=== PATIENT | female | born 1960 | race African-American/Black ===

== ENCOUNTER 2017-06-13 20:16 | Inpatient (IN) | payer MEDICARE, MEDICAID ==
[~2017-06-13] VITALS: Ht 157.5 cm; Wt 73.3 kg
[2017-06-13 20:00] VITALS: BP 161/65
[2017-06-13 20:15] VITALS: BP 161/65
[~2017-06-13 20:16] MED LIST: ASPI-1159 PO; CARV25TA47 PO; CARV6.2548 PO; DIGO125T82 PO; FURO40TA5 PO; LOSA25TA12 PO; LOSA50TA20 PO; METF500T4 PO; RIVA20TA PO; SIMV10TA6 PO; WARF6TAB21 PO
[2017-06-13] MEDS ORDERED: ONDANSETRON HCL 4MG TABLET PO PRN (20:30)
[2017-06-13] MEDS ORDERED: LACTULOSE 20G/30ML UDC PO NR (20:30)
[2017-06-13] MEDS ORDERED: DEXTROSE 50% WATER 50ML SYRINGE IV PRN (20:30)
[2017-06-13] MEDS: INSULIN LISPRO 100 UNITS/ML SUBCUT SCH (21:00)
[2017-06-13] MEDS: CARVEDILOL 3.125 MG TABLET PO SCH (21:50)
[2017-06-13] MEDS: ACETAMINOPHEN 325MG TABLET PO PRN (21:52)
[2017-06-13] MEDS: BLOOD SUGAR DIAGNOSTIC STRIP TEST SCH (21:53)
[2017-06-14] MEDS: INSULIN LISPRO 100 UNITS/ML SUBCUT SCH ×4 (06:28→20:38)
[2017-06-14] MEDS: BLOOD SUGAR DIAGNOSTIC STRIP TEST SCH ×4 (06:28→20:38)
[2017-06-14] MEDS: FUROSEMIDE 20MG TABLET PO SCH ×2 (06:42→16:52)
[2017-06-14 06:47] LABS: BASOPHILS % 0.7 % (0.0-2.0); EOSINOPHILS % 2.2 % (0.0-5.0); HEMATOCRIT. 40.6 % (36.0-48.0); HEMOGLOBIN. 13.3 g/dL (12.0-16.0); LYMPHOCYTES % 23.6 % (20.0-50.0); MEAN CORPUSCULAR HEMOGLOBIN 24.8 pg (28.0-32.0); MEAN CORPUSCULAR VOLUME 75.5 fL (81.0-99.0); MEAN PLATELET VOLUME 8.8 fl (7.4-10.4); MONOCYTES % 13.9 % (2.0-8.0); NEUTROPHILS % 59.6 % (40.0-76.0); PLATELET 250 x1000/uL (130-400); RED BLOOD CELL COUNT 5.37 mill/uL (4.2-5.4); RED CELL DISTRIBUTION WIDTH 16.9 % (11.6-14.6)
[2017-06-14] MEDS ORDERED: OMEPRAZOLE 20MG CAPSULE EXTENDED RELEASE PO SCH (07:00)
[2017-06-14 08:00] VITALS: BP 109/70
[2017-06-14] MEDS: CARVEDILOL 3.125 MG TABLET PO SCH ×2 (08:16→20:34)
[2017-06-14] MEDS: LOSARTAN POTASSIUM 25 MG TABLET PO SCH (08:16)
[2017-06-14] MEDS: FAMOTIDINE 20MG TABLET PO SCH (08:17)
[2017-06-14] MEDS: DOCUSATE SODIUM 100MG CAPSULE PO PRN (08:17)
[2017-06-14] MEDS: POTASSIUM CHLORIDE 20MEQ TABLET SR PO SCH (08:17)
[2017-06-14] MEDS ORDERED: LEVOFLOXACIN 500MG TABLET PO SCH (09:00)
[2017-06-14] MEDS: RIVAROXABAN 20 MG TABLET PO SCH (16:49)
[2017-06-14] MEDS ORDERED: LEVOFLOXACIN 250MG TABLET PO SCH (17:33)
[2017-06-14 20:00] VITALS: BP 134/71
[2017-06-14] MEDS: ACETAMINOPHEN 325MG TABLET PO PRN (20:33)
[2017-06-15] MEDS: FUROSEMIDE 20MG TABLET PO SCH ×2 (06:27→17:14)
[2017-06-15] MEDS: BLOOD SUGAR DIAGNOSTIC STRIP TEST SCH ×4 (06:30→20:15)
[2017-06-15] MEDS: INSULIN LISPRO 100 UNITS/ML SUBCUT SCH ×4 (06:54→20:14)
[2017-06-15 07:08] LABS: HEMOGLOBIN. 13.2 g/dL (12.0-16.0); MEAN CORPUSCULAR HEMOGLOBIN 24.8 pg (28.0-32.0); MEAN CORPUSCULAR VOLUME 75.4 fL (81.0-99.0); MEAN PLATELET VOLUME 8.7 fl (7.4-10.4); PLATELET 239 x1000/uL (130-400); RED CELL DISTRIBUTION WIDTH 16.7 % (11.6-14.6)
[2017-06-15 08:00] VITALS: BP 116/60
[2017-06-15] MEDS: FAMOTIDINE 20MG TABLET PO SCH (08:19)
[2017-06-15] MEDS: LOSARTAN POTASSIUM 25 MG TABLET PO SCH (08:19)
[2017-06-15] MEDS: POTASSIUM CHLORIDE 20MEQ TABLET SR PO SCH (08:19)
[2017-06-15] MEDS: CARVEDILOL 3.125 MG TABLET PO SCH ×2 (08:19→20:14)
[2017-06-15] MEDS: LEVOFLOXACIN 250MG TABLET PO SCH (08:19)
[2017-06-15 09:18] LABS: PLATELET ESTIMATE NORMAL
[2017-06-15] MEDS: ACETAMINOPHEN 325MG TABLET PO PRN (12:05)
[2017-06-15] MEDS: RIVAROXABAN 20 MG TABLET PO SCH (17:14)
[2017-06-15 20:00] VITALS: BP 115/62
[2017-06-16] MEDS: BLOOD SUGAR DIAGNOSTIC STRIP TEST SCH ×4 (05:37→20:08)
[2017-06-16] MEDS: INSULIN LISPRO 100 UNITS/ML SUBCUT SCH ×4 (05:37→20:08)
[2017-06-16] MEDS: FUROSEMIDE 20MG TABLET PO SCH ×2 (06:15→16:50)
[2017-06-16] MEDS: CARVEDILOL 3.125 MG TABLET PO SCH ×2 (09:00→20:07)
[2017-06-16] MEDS: LOSARTAN POTASSIUM 25 MG TABLET PO SCH (09:00)
[2017-06-16] MEDS: LEVOFLOXACIN 250MG TABLET PO SCH (09:59)
[2017-06-16] MEDS: POTASSIUM CHLORIDE 20MEQ TABLET SR PO SCH (09:59)
[2017-06-16] MEDS: FAMOTIDINE 20MG TABLET PO SCH (09:59)
[2017-06-16] MEDS: RIVAROXABAN 20 MG TABLET PO SCH (16:50)
[2017-06-16 20:00] VITALS: BP 133/66
[2017-06-17] MEDS: BLOOD SUGAR DIAGNOSTIC STRIP TEST SCH ×4 (05:58→20:59)
[2017-06-17] MEDS: INSULIN LISPRO 100 UNITS/ML SUBCUT SCH ×4 (05:58→20:59)
[2017-06-17] MEDS: FUROSEMIDE 20MG TABLET PO SCH ×2 (06:19→16:53)
[2017-06-17 08:34] VITALS: BP 118/87
[2017-06-17] MEDS: LOSARTAN POTASSIUM 25 MG TABLET PO SCH (09:00)
[2017-06-17] MEDS: POTASSIUM CHLORIDE 20MEQ TABLET SR PO SCH (09:14)
[2017-06-17] MEDS: CARVEDILOL 3.125 MG TABLET PO SCH ×2 (09:14→20:59)
[2017-06-17] MEDS: FAMOTIDINE 20MG TABLET PO SCH (09:14)
[2017-06-17 11:25] LABS: BASOPHILS % 0.7 % (0.0-2.0); EOSINOPHILS % 2.5 % (0.0-5.0); HEMATOCRIT. 41.1 % (36.0-48.0); HEMOGLOBIN. 13.3 g/dL (12.0-16.0); LYMPHOCYTES % 28.5 % (20.0-50.0); MEAN CORPUSCULAR HEMOGLOBIN 24.5 pg (28.0-32.0); MEAN CORPUSCULAR VOLUME 75.5 fL (81.0-99.0); MEAN PLATELET VOLUME 8.1 fl (7.4-10.4); MONOCYTES % 10.2 % (2.0-8.0); NEUTROPHILS % 58.1 % (40.0-76.0); PLATELET 239 x1000/uL (130-400); RED BLOOD CELL COUNT 5.44 mill/uL (4.2-5.4)
[2017-06-17 11:42] LABS: CHLORIDE 107 mEq/L (98-107)
[2017-06-17] MEDS: RIVAROXABAN 20 MG TABLET PO SCH (16:53)
[2017-06-17] MEDS: ACETAMINOPHEN 325MG TABLET PO PRN (16:58)
[2017-06-17 20:00] VITALS: BP 131/73
[2017-06-18] MEDS: BLOOD SUGAR DIAGNOSTIC STRIP TEST SCH ×4 (05:44→21:32)
[2017-06-18] MEDS: INSULIN LISPRO 100 UNITS/ML SUBCUT SCH ×4 (05:45→21:00)
[2017-06-18] MEDS: FUROSEMIDE 20MG TABLET PO SCH ×2 (06:16→17:45)
[2017-06-18 08:00] VITALS: BP 156/96
[2017-06-18] MEDS: CARVEDILOL 3.125 MG TABLET PO SCH ×2 (08:33→21:33)
[2017-06-18] MEDS: POTASSIUM CHLORIDE 20MEQ TABLET SR PO SCH (08:34)
[2017-06-18] MEDS: LOSARTAN POTASSIUM 25 MG TABLET PO SCH (08:34)
[2017-06-18] MEDS: FAMOTIDINE 20MG TABLET PO SCH (08:34)
[2017-06-18] MEDS ORDERED: BISACODYL 5MG TABLET PO PRN (12:30)
[2017-06-18] MEDS: RIVAROXABAN 20 MG TABLET PO SCH (17:45)
[2017-06-18 19:52] VITALS: BP 120/69
[2017-06-19] MEDS: BLOOD SUGAR DIAGNOSTIC STRIP TEST SCH ×4 (06:14→21:49)
[2017-06-19] MEDS: INSULIN LISPRO 100 UNITS/ML SUBCUT SCH ×4 (06:15→21:00)
[2017-06-19] MEDS: FUROSEMIDE 20MG TABLET PO SCH ×2 (06:15→16:25)
[2017-06-19 07:54] LABS: CHLORIDE 107 mEq/L (98-107); HDL CHOLESTEROL 42 mg/dL (40-59); LDL CHOLESTEROL 120 mg/dL (5-100)
[2017-06-19 08:17] VITALS: BP 142/88
[2017-06-19] MEDS: LOSARTAN POTASSIUM 25 MG TABLET PO SCH (09:25)
[2017-06-19] MEDS: FAMOTIDINE 20MG TABLET PO SCH (09:25)
[2017-06-19] MEDS: POTASSIUM CHLORIDE 20MEQ TABLET SR PO SCH (09:25)
[2017-06-19] MEDS: CARVEDILOL 3.125 MG TABLET PO SCH ×2 (09:26→21:00)
[2017-06-19] MEDS: RIVAROXABAN 20 MG TABLET PO SCH (16:25)
[2017-06-19 20:00] VITALS: BP 109/76
[2017-06-20] MEDS: BLOOD SUGAR DIAGNOSTIC STRIP TEST SCH ×4 (05:52→21:29)
[2017-06-20] MEDS: FUROSEMIDE 20MG TABLET PO SCH ×2 (05:53→18:08)
[2017-06-20] MEDS: INSULIN LISPRO 100 UNITS/ML SUBCUT SCH ×4 (06:46→21:00)
[2017-06-20 08:00] VITALS: BP 123/67
[2017-06-20] MEDS: FAMOTIDINE 20MG TABLET PO SCH (08:45)
[2017-06-20] MEDS: POTASSIUM CHLORIDE 20MEQ TABLET SR PO SCH (08:45)
[2017-06-20] MEDS: LOSARTAN POTASSIUM 25 MG TABLET PO SCH (08:45)
[2017-06-20] MEDS: CARVEDILOL 3.125 MG TABLET PO SCH ×2 (08:46→21:32)
[2017-06-20] MEDS: RIVAROXABAN 20 MG TABLET PO SCH (18:08)
[2017-06-20 20:00] VITALS: BP 126/69
[2017-06-21] MEDS: BLOOD SUGAR DIAGNOSTIC STRIP TEST SCH ×4 (06:01→21:15)
[2017-06-21] MEDS: FUROSEMIDE 20MG TABLET PO SCH ×2 (06:01→16:37)
[2017-06-21 06:19] LABS: HEMATOCRIT. 37.6 % (36.0-48.0); HEMOGLOBIN. 12.3 g/dL (12.0-16.0); MEAN CORPUSCULAR HEMOGLOBIN 24.8 pg (28.0-32.0); MEAN CORPUSCULAR VOLUME 75.6 fL (81.0-99.0); PLATELET 172 x1000/uL (130-400); RED BLOOD CELL COUNT 4.97 mill/uL (4.2-5.4); RED CELL DISTRIBUTION WIDTH 16.5 % (11.6-14.6)
[2017-06-21 08:17] VITALS: BP 111/62
[2017-06-21] MEDS: CARVEDILOL 3.125 MG TABLET PO SCH ×2 (08:28→21:14)
[2017-06-21] MEDS: LOSARTAN POTASSIUM 25 MG TABLET PO SCH (08:28)
[2017-06-21 08:42] LABS: CHLORIDE 109 mEq/L (98-107)
[2017-06-21] MEDS: INSULIN LISPRO 100 UNITS/ML SUBCUT SCH ×4 (09:00→21:00)
[2017-06-21] MEDS: POTASSIUM CHLORIDE 20MEQ TABLET SR PO SCH (09:04)
[2017-06-21] MEDS: FAMOTIDINE 20MG TABLET PO SCH (09:04)
[2017-06-21 12:28] LABS: PLATELET ESTIMATE NORMAL
[2017-06-21] MEDS: RIVAROXABAN 20 MG TABLET PO SCH (16:37)
[2017-06-21 20:00] VITALS: BP 110/67
[2017-06-22] MEDS: INSULIN LISPRO 100 UNITS/ML SUBCUT SCH ×4 (06:00→20:34)
[2017-06-22] MEDS: BLOOD SUGAR DIAGNOSTIC STRIP TEST SCH ×4 (06:01→20:35)
[2017-06-22] MEDS: FUROSEMIDE 20MG TABLET PO SCH ×2 (06:01→16:57)
[2017-06-22 08:00] VITALS: BP 127/67
[2017-06-22] MEDS: POTASSIUM CHLORIDE 20MEQ TABLET SR PO SCH (08:33)
[2017-06-22] MEDS: FAMOTIDINE 20MG TABLET PO SCH (08:33)
[2017-06-22] MEDS: LOSARTAN POTASSIUM 25 MG TABLET PO SCH (08:33)
[2017-06-22] MEDS: CARVEDILOL 3.125 MG TABLET PO SCH ×3 (08:34→20:36)
[2017-06-22] MEDS: RIVAROXABAN 20 MG TABLET PO SCH (16:57)
[2017-06-22 20:00] VITALS: BP 127/78
[2017-06-22 20:46] VITALS: BP 127/78
[2017-06-23] MEDS: BLOOD SUGAR DIAGNOSTIC STRIP TEST SCH ×4 (05:37→20:39)
[2017-06-23] MEDS: INSULIN LISPRO 100 UNITS/ML SUBCUT SCH ×4 (05:38→20:39)
[2017-06-23] MEDS: FUROSEMIDE 20MG TABLET PO SCH ×2 (06:29→17:07)
[2017-06-23 08:17] VITALS: BP 105/60
[2017-06-23] MEDS: POTASSIUM CHLORIDE 20MEQ TABLET SR PO SCH (08:40)
[2017-06-23] MEDS: FAMOTIDINE 20MG TABLET PO SCH (08:40)
[2017-06-23] MEDS: LOSARTAN POTASSIUM 25 MG TABLET PO SCH (08:41)
[2017-06-23] MEDS: CARVEDILOL 3.125 MG TABLET PO SCH ×2 (08:41→20:36)
[2017-06-23] MEDS: RIVAROXABAN 20 MG TABLET PO SCH (17:07)
[2017-06-23 20:00] VITALS: BP 146/74
[2017-06-24] MEDS: FUROSEMIDE 20MG TABLET PO SCH ×2 (06:18→17:05)
[2017-06-24] MEDS: BLOOD SUGAR DIAGNOSTIC STRIP TEST SCH ×4 (06:18→20:45)
[2017-06-24 06:37] LABS: BASOPHILS % 0.9 % (0.0-2.0); EOSINOPHILS % 2.6 % (0.0-5.0); HEMATOCRIT. 39.7 % (36.0-48.0); HEMOGLOBIN. 12.8 g/dL (12.0-16.0); LYMPHOCYTES % 39.3 % (20.0-50.0); MEAN CORPUSCULAR HEMOGLOBIN 24.5 pg (28.0-32.0); MEAN PLATELET VOLUME 8.7 fl (7.4-10.4); MONOCYTES % 10.1 % (2.0-8.0); NEUTROPHILS % 47.1 % (40.0-76.0); PLATELET 180 x1000/uL (130-400); RED BLOOD CELL COUNT 5.23 mill/uL (4.2-5.4); RED CELL DISTRIBUTION WIDTH 16.7 % (11.6-14.6)
[2017-06-24 07:20] LABS: CHLORIDE 106 mEq/L (98-107)
[2017-06-24] MEDS: INSULIN LISPRO 100 UNITS/ML SUBCUT SCH ×4 (07:22→20:45)
[2017-06-24 08:00] VITALS: BP 135/84
[2017-06-24] MEDS: CARVEDILOL 3.125 MG TABLET PO SCH ×2 (08:58→20:42)
[2017-06-24] MEDS: FAMOTIDINE 20MG TABLET PO SCH (08:59)
[2017-06-24] MEDS: POTASSIUM CHLORIDE 20MEQ TABLET SR PO SCH (08:59)
[2017-06-24] MEDS: LOSARTAN POTASSIUM 25 MG TABLET PO SCH (08:59)
[2017-06-24] MEDS: RIVAROXABAN 20 MG TABLET PO SCH (17:05)
[2017-06-24 20:00] VITALS: BP 112/64
[2017-06-25 05:58] LABS: EOSINOPHILS % 2.7 % (0.0-5.0); HEMATOCRIT. 36.7 % (36.0-48.0); HEMOGLOBIN. 12.1 g/dL (12.0-16.0); LYMPHOCYTES % 41.5 % (20.0-50.0); MEAN CORPUSCULAR HEMOGLOBIN 24.5 pg (28.0-32.0); MEAN CORPUSCULAR VOLUME 74.2 fL (81.0-99.0); MEAN PLATELET VOLUME 8.8 fl (7.4-10.4); MONOCYTES % 11.4 % (2.0-8.0); NEUTROPHILS % 43.4 % (40.0-76.0); PLATELET 192 x1000/uL (130-400); RED BLOOD CELL COUNT 4.94 mill/uL (4.2-5.4); RED CELL DISTRIBUTION WIDTH 16.8 % (11.6-14.6)
[2017-06-25 06:17] LABS: CHLORIDE 106 mEq/L (98-107)
[2017-06-25] MEDS: BLOOD SUGAR DIAGNOSTIC STRIP TEST SCH ×4 (06:17→20:34)
[2017-06-25] MEDS: FUROSEMIDE 20MG TABLET PO SCH ×2 (06:17→17:23)
[2017-06-25] MEDS: INSULIN LISPRO 100 UNITS/ML SUBCUT SCH ×4 (07:32→20:34)
[2017-06-25 08:08] VITALS: BP 107/71
[2017-06-25] MEDS: CARVEDILOL 3.125 MG TABLET PO SCH ×2 (08:50→20:31)
[2017-06-25] MEDS: LOSARTAN POTASSIUM 25 MG TABLET PO SCH (08:50)
[2017-06-25] MEDS: POTASSIUM CHLORIDE 20MEQ TABLET SR PO SCH (09:18)
[2017-06-25] MEDS: FAMOTIDINE 20MG TABLET PO SCH (09:18)
[2017-06-25] MEDS: RIVAROXABAN 20 MG TABLET PO SCH (17:23)
[2017-06-25 20:00] VITALS: BP 128/78
[2017-06-26] MEDS: BLOOD SUGAR DIAGNOSTIC STRIP TEST SCH ×4 (06:14→21:10)
[2017-06-26] MEDS: FUROSEMIDE 20MG TABLET PO SCH ×2 (06:14→17:21)
[2017-06-26 06:16] VITALS: BP 118/74
[2017-06-26] MEDS: INSULIN LISPRO 100 UNITS/ML SUBCUT SCH ×4 (06:48→21:00)
[2017-06-26 08:00] VITALS: BP 132/87
[2017-06-26] MEDS: FAMOTIDINE 20MG TABLET PO SCH (08:34)
[2017-06-26] MEDS: POTASSIUM CHLORIDE 20MEQ TABLET SR PO SCH (08:34)
[2017-06-26] MEDS: LOSARTAN POTASSIUM 25 MG TABLET PO SCH (08:34)
[2017-06-26] MEDS: CARVEDILOL 3.125 MG TABLET PO SCH ×2 (08:34→21:07)
[2017-06-26] MEDS: RIVAROXABAN 20 MG TABLET PO SCH (17:21)
[2017-06-26 20:00] VITALS: BP 123/75
[2017-06-27] MEDS: INSULIN LISPRO 100 UNITS/ML SUBCUT SCH ×4 (05:47→20:43)
[2017-06-27] MEDS: BLOOD SUGAR DIAGNOSTIC STRIP TEST SCH ×4 (05:47→20:42)
[2017-06-27] MEDS: FUROSEMIDE 20MG TABLET PO SCH ×2 (06:26→17:00)
[2017-06-27] MEDS: FAMOTIDINE 20MG TABLET PO SCH (08:01)
[2017-06-27] MEDS: LOSARTAN POTASSIUM 25 MG TABLET PO SCH (08:01)
[2017-06-27] MEDS: POTASSIUM CHLORIDE 20MEQ TABLET SR PO SCH (08:01)
[2017-06-27] MEDS: CARVEDILOL 3.125 MG TABLET PO SCH ×2 (08:01→20:46)
[2017-06-27 08:08] VITALS: BP 135/76
[2017-06-27] MEDS: RIVAROXABAN 20 MG TABLET PO SCH (17:00)
[2017-06-27 20:00] VITALS: BP 132/78
[2017-06-28] MEDS: BLOOD SUGAR DIAGNOSTIC STRIP TEST SCH ×4 (05:51→20:46)
[2017-06-28] MEDS: INSULIN LISPRO 100 UNITS/ML SUBCUT SCH ×4 (05:51→20:46)
[2017-06-28] MEDS: FUROSEMIDE 20MG TABLET PO SCH ×2 (06:41→16:15)
[2017-06-28 07:48] LABS: EOSINOPHILS % 2.8 % (0.0-5.0); HEMATOCRIT. 37.1 % (36.0-48.0); LYMPHOCYTES % 36.5 % (20.0-50.0); MEAN CORPUSCULAR HEMOGLOBIN 24.1 pg (28.0-32.0); MEAN CORPUSCULAR VOLUME 74.7 fL (81.0-99.0); MEAN PLATELET VOLUME 9.4 fl (7.4-10.4); NEUTROPHILS % 49.7 % (40.0-76.0); PLATELET 210 x1000/uL (130-400); RED BLOOD CELL COUNT 4.96 mill/uL (4.2-5.4); RED CELL DISTRIBUTION WIDTH 16.4 % (11.6-14.6)
[2017-06-28 08:01] VITALS: BP 143/75
[2017-06-28 08:47] LABS: CHLORIDE 105 mEq/L (98-107)
[2017-06-28] MEDS: POTASSIUM CHLORIDE 20MEQ TABLET SR PO SCH (09:57)
[2017-06-28] MEDS: LOSARTAN POTASSIUM 25 MG TABLET PO SCH (09:57)
[2017-06-28] MEDS: CARVEDILOL 3.125 MG TABLET PO SCH ×2 (09:57→20:44)
[2017-06-28] MEDS: FAMOTIDINE 20MG TABLET PO SCH (09:57)
[2017-06-28] MEDS: RIVAROXABAN 20 MG TABLET PO SCH (16:15)
[2017-06-28 20:00] VITALS: BP 139/58
[2017-06-29] MEDS: BLOOD SUGAR DIAGNOSTIC STRIP TEST SCH ×4 (06:27→20:38)
[2017-06-29] MEDS: INSULIN LISPRO 100 UNITS/ML SUBCUT SCH ×4 (06:27→20:38)
[2017-06-29] MEDS: FUROSEMIDE 20MG TABLET PO SCH ×2 (06:28→17:30)
[2017-06-29 08:00] VITALS: BP 138/88
[2017-06-29] MEDS: DOCUSATE SODIUM 100MG CAPSULE PO PRN (09:58)
[2017-06-29] MEDS: LOSARTAN POTASSIUM 25 MG TABLET PO SCH (09:58)
[2017-06-29] MEDS: POTASSIUM CHLORIDE 20MEQ TABLET SR PO SCH (09:59)
[2017-06-29] MEDS: FAMOTIDINE 20MG TABLET PO SCH (09:59)
[2017-06-29] MEDS: CARVEDILOL 3.125 MG TABLET PO SCH ×2 (10:00→20:36)
[2017-06-29] MEDS: RIVAROXABAN 20 MG TABLET PO SCH (17:30)
[2017-06-29 20:00] VITALS: BP 155/94
[2017-06-30] MEDS: FUROSEMIDE 20MG TABLET PO SCH ×2 (06:20→17:43)
[2017-06-30] MEDS: BLOOD SUGAR DIAGNOSTIC STRIP TEST SCH ×4 (06:23→20:41)
[2017-06-30] MEDS: INSULIN LISPRO 100 UNITS/ML SUBCUT SCH ×4 (06:23→20:41)
[2017-06-30 08:00] VITALS: BP 134/81
[2017-06-30] MEDS: LOSARTAN POTASSIUM 25 MG TABLET PO SCH (08:14)
[2017-06-30] MEDS: CARVEDILOL 3.125 MG TABLET PO SCH ×2 (08:14→20:41)
[2017-06-30] MEDS: POTASSIUM CHLORIDE 20MEQ TABLET SR PO SCH (08:14)
[2017-06-30] MEDS: FAMOTIDINE 20MG TABLET PO SCH (08:14)
[2017-06-30] MEDS: RIVAROXABAN 20 MG TABLET PO SCH (17:43)
[2017-06-30 20:00] VITALS: BP 153/82
[2017-07-01] MEDS: BLOOD SUGAR DIAGNOSTIC STRIP TEST SCH (06:00)
[2017-07-01] MEDS: INSULIN LISPRO 100 UNITS/ML SUBCUT SCH (06:00)
[2017-07-01] MEDS: FUROSEMIDE 20MG TABLET PO SCH (06:16)
[2017-07-01] MEDS: LOSARTAN POTASSIUM 25 MG TABLET PO SCH (08:06)
[2017-07-01] MEDS: POTASSIUM CHLORIDE 20MEQ TABLET SR PO SCH (08:06)
[2017-07-01] MEDS: CARVEDILOL 3.125 MG TABLET PO SCH (08:07)
[2017-07-01] MEDS: FAMOTIDINE 20MG TABLET PO SCH (08:07)
[2017-07-01 08:25] VITALS: BP 123/74
[2017-07-01 09:32] VITALS: BP 123/74
== END 2017-07-01 11:30 | disposition home health service (06) | DRG 64 ==
PROVIDERS: ADMIT Psychiatry & Neurology Neurology; ATTEND Family Medicine Adult Medicine
DX: I63.9 Cerebral infarction, unspecified (principal); I50.23 Acute on chronic systolic (congestive) heart failure; I42.0 Dilated cardiomyopathy; I27.20 Pulmonary hypertension, unspecified; I49.5 Sick sinus syndrome; I48.2 Chronic atrial fibrillation; E11.9 Type 2 diabetes mellitus without complications; D64.9 Anemia, unspecified; I25.10 Atherosclerotic heart disease of native coronary artery without angina pectoris; I11.0 Hypertensive heart disease with heart failure; F41.9 Anxiety disorder, unspecified; E87.6 Hypokalemia; E78.5 Hyperlipidemia, unspecified; F06.31 Mood disorder due to known physiological condition with depressive features; E78.00 Pure hypercholesterolemia, unspecified; F32.9 Major depressive disorder, single episode, unspecified; K59.00 Constipation, unspecified; Z95.0 Presence of cardiac pacemaker; Z79.01 Long term (current) use of anticoagulants; Z82.49 Family history of ischemic heart disease and other diseases of the circulatory system; Z79.82 Long term (current) use of aspirin; Z79.84 Long term (current) use of oral hypoglycemic drugs; Z79.899 Other long term (current) drug therapy
CPT/HCPCS: 36415; 80048; 80061; 82962; 83735; 85025; 92523; 97110; 97112; 97116; 97150; 97162; 97167; 97530; 97535; G0515

== ENCOUNTER 2018-09-03 22:04 | Emergency (ER) | payer MEDICARE, MEDICAID ==
[~2018-09-03] VITALS: Ht 157.5 cm; Wt 87.0 kg
[~2018-09-03 22:04] MED LIST changes: -ASPI-1159 PO; -CARV25TA47 PO; -CARV6.2548 PO; -DIGO125T82 PO; -LOSA50TA20 PO; -METF500T4 PO; -SIMV10TA6 PO; -WARF6TAB21 PO
[2018-09-04] MEDS: RIVAROXABAN 10 MG TABLET PO STA ×2 (02:07→02:08)
[2018-09-04 02:09] VITALS: BP 179/94
[2018-09-04] MEDS ORDERED: RIVAROXABAN 20 MG TABLET PO SCH (02:15)
== END 2018-09-04 02:11 | disposition home or self-care (01) ==
LOC: ER 22:04
DX: I48.91 Unspecified atrial fibrillation (principal); E78.00 Pure hypercholesterolemia, unspecified; I11.0 Hypertensive heart disease with heart failure; I50.9 Heart failure, unspecified; Z79.899 Other long term (current) drug therapy; Z95.0 Presence of cardiac pacemaker; Z76.0 Encounter for issue of repeat prescription; Z86.73 Personal history of transient ischemic attack (TIA), and cerebral infarction without residual deficits
CPT/HCPCS: 99283

== ENCOUNTER 2020-08-27 19:18 | Inpatient (IN) | payer MEDICARE, MEDICAID ==
[~2020-08-27] VITALS: Ht 157.5 cm; Wt 87.1 kg
[~2020-08-27 19:18] MED LIST changes: -LOSA25TA12 PO; +LOSA25TA26 PO
[2020-08-27 21:12] LABS: BASOPHILS % 0.7 % (0.0-2.0); EOSINOPHILS % 1.6 % (0.0-5.0); HEMATOCRIT. 32.9 % (36.0-48.0); HEMOGLOBIN. 11.1 g/dL (12.0-16.0); LYMPHOCYTES % 29.2 % (20.0-50.0); MEAN CORPUSCULAR HEMOGLOBIN 25.2 pg (28.0-32.0); MEAN CORPUSCULAR VOLUME 74.8 fL (81.0-99.0); MEAN PLATELET VOLUME 7.7 fl (7.4-10.4); MONOCYTES % 13.3 % (2.0-8.0); NEUTROPHILS % 55.2 % (40.0-76.0); PLATELET 184 x1000/uL (130-400); RED CELL DISTRIBUTION WIDTH 16.1 % (11.6-14.6)
[2020-08-27 21:19] LABS: CHLORIDE 107 mEq/L (98-107)
[2020-08-27 21:23] LABS: INR 1.3; PARTIAL THROMBOPLASTIN TIME 34.9 sec (23.4-31.0); PROTHROMBIN TIME 13.4 sec (9.6-11.0)
[2020-08-27] MEDS ORDERED: ASPIRIN 325MG EC TABLET PO ONE (22:00)
[2020-08-27] MEDS ORDERED: IPRATROPIUM/ALBUTEROL 0.5-3(2.5)MG/3ML NEB HHN PRN (22:15)
[2020-08-27] MEDS ORDERED: MAGNESIUM/ALUMINUM HYDROXIDE/SIMETHICONE 30ML UDC PO PRN (22:15)
[2020-08-27] MEDS ORDERED: DIPHENHYDRAMINE 50MG/ML VIAL IV PRN (22:15)
[2020-08-27] MEDS ORDERED: MORPHINE SULFATE 2 MG/ML CPJ (NOT FOR IM USE) IV PRN (22:15)
[2020-08-27] MEDS ORDERED: LORAZEPAM 2MG/ML CPJ IV PRN (22:15)
[2020-08-27] MEDS ORDERED: ONDANSETRON HCL 4MG/2ML INJ IV PRN (22:15)
[2020-08-27] MEDS ORDERED: HYDROCODONE/ACETAMINOPHEN 5/325MG TABLET PO PRN (22:15)
[2020-08-27] MEDS ORDERED: ACETAMINOPHEN 325MG TABLET PO PRN (22:15)
[2020-08-27] MEDS ORDERED: HYDRALAZINE 20MG/ML VIAL IV PRN (22:15)
[2020-08-27] MEDS ORDERED: GUAIFENESIN 200MG/10ML SUGAR FREE UDC PO PRN (22:15)
[2020-08-27] MEDS ORDERED: DOCUSATE SODIUM 100MG CAPSULE PO PRN (22:15)
[2020-08-27] MEDS ORDERED: CLONIDINE 0.1MG TABLET PO PRN (22:15)
[2020-08-28] VITALS (8 sets, daily range): BP systolic 105–178; BP diastolic 57–102
[2020-08-28] MEDS ORDERED: DIGO250T79 PO (03:35)
[2020-08-28] MEDS ORDERED: SIMV-43 PO (03:35)
[2020-08-28] MEDS ORDERED: METF-414 PO (03:35)
[2020-08-28 07:35] LABS: CHLORIDE 108 mEq/L (98-107)
[2020-08-28 07:58] LABS: CREATINE KINASE 201 IU/L (26-192)
[2020-08-28 08:01] LABS: BASOPHILS % 0.6 % (0.0-2.0); EOSINOPHILS % 2.1 % (0.0-5.0); HEMATOCRIT. 33.8 % (36.0-48.0); HEMOGLOBIN. 11.1 g/dL (12.0-16.0); LYMPHOCYTES % 41.4 % (20.0-50.0); MEAN CORPUSCULAR HEMOGLOBIN 24.8 pg (28.0-32.0); MEAN CORPUSCULAR VOLUME 75.6 fL (81.0-99.0); MEAN PLATELET VOLUME 8.6 fl (7.4-10.4); MONOCYTES % 13.8 % (2.0-8.0); NEUTROPHILS % 42.1 % (40.0-76.0); PLATELET 182 x1000/uL (130-400); RED BLOOD CELL COUNT 4.47 mill/uL (4.2-5.4); RED CELL DISTRIBUTION WIDTH 16.1 % (11.6-14.6)
[2020-08-28 08:02] LABS: CREATINE KINASE MB FRACTION < 1.0 ng/mL (0.5-3.6)
[2020-08-28] MEDS: ASPIRIN 81MG EC TABLET PO SCH (08:16)
[2020-08-28] MEDS: SODIUM CHLORIDE 0.9% INJ 3ML FLUSH IVF SCH ×3 (08:17→20:46)
[2020-08-28] MEDS ORDERED: ENOXAPARIN 40MG/0.4ML SYR SUBCUT SCH (09:00)
[2020-08-28] MEDS: CARVEDILOL 12.5MG TABLET PO SCH ×2 (12:53→20:46)
[2020-08-28] MEDS ORDERED: POTASSIUM CHLORIDE 20MEQ/PACKET PO NR (14:30)
[2020-08-28 14:41] LABS: CREATINE KINASE 130 IU/L (26-192)
[2020-08-28 14:46] LABS: CREATINE KINASE MB FRACTION 1.1 ng/mL (0.5-3.6)
[2020-08-28] MEDS ORDERED: DIGOXIN 125MCG TABLET PO SCH (18:00)
[2020-08-28] MEDS: AMLODIPINE 5MG TABLET PO SCH (20:46)
[2020-08-29 00:52] VITALS: BP 122/73
[2020-08-29 04:30] VITALS: BP 130/73
[2020-08-29] MEDS: SODIUM CHLORIDE 0.9% INJ 3ML FLUSH IVF SCH (06:22)
[2020-08-29 06:57] LABS: BASOPHILS % 0.9 % (0.0-2.0); EOSINOPHILS % 2.6 % (0.0-5.0); HEMATOCRIT. 32.7 % (36.0-48.0); HEMOGLOBIN. 10.7 g/dL (12.0-16.0); LYMPHOCYTES % 37.3 % (20.0-50.0); MEAN CORPUSCULAR HEMOGLOBIN 24.8 pg (28.0-32.0); MEAN CORPUSCULAR VOLUME 75.6 fL (81.0-99.0); MEAN PLATELET VOLUME 8.5 fl (7.4-10.4); NEUTROPHILS % 47.2 % (40.0-76.0); PLATELET 173 x1000/uL (130-400); RED BLOOD CELL COUNT 4.32 mill/uL (4.2-5.4); RED CELL DISTRIBUTION WIDTH 16.2 % (11.6-14.6)
[2020-08-29 08:00] VITALS: BP 136/79
[2020-08-29 08:05] VITALS: BP 136/79
[2020-08-29] MEDS: AMLODIPINE 5MG TABLET PO SCH (08:17)
[2020-08-29] MEDS: ASPIRIN 81MG EC TABLET PO SCH (08:17)
[2020-08-29] MEDS: CARVEDILOL 12.5MG TABLET PO SCH (08:17)
[2020-08-29] MEDS ORDERED: RIVAROXABAN 20 MG TABLET PO SCH (17:00)
== END 2020-08-29 11:44 | disposition home or self-care (01) | DRG 68 ==
LOC: ER 19:18 → 6WST 21:54 → ENRESERV 23:23
PROVIDERS: ADMIT Internal Medicine; ATTEND Internal Medicine
DX: I65.29 Occlusion and stenosis of unspecified carotid artery (principal); I48.20 Chronic atrial fibrillation, unspecified; I42.9 Cardiomyopathy, unspecified; R47.01 Aphasia; D64.9 Anemia, unspecified; E11.9 Type 2 diabetes mellitus without complications; I50.9 Heart failure, unspecified; I11.0 Hypertensive heart disease with heart failure; R47.81 Slurred speech; G83.12 Monoplegia of lower limb affecting left dominant side; E87.6 Hypokalemia; I49.5 Sick sinus syndrome; I25.10 Atherosclerotic heart disease of native coronary artery without angina pectoris; I27.20 Pulmonary hypertension, unspecified; E78.5 Hyperlipidemia, unspecified; Z79.01 Long term (current) use of anticoagulants; I69.398 Other sequelae of cerebral infarction; Z87.74 Personal history of (corrected) congenital malformations of heart and circulatory system; Z79.899 Other long term (current) drug therapy; Z79.84 Long term (current) use of oral hypoglycemic drugs; Z95.810 Presence of automatic (implantable) cardiac defibrillator; R53.1 Weakness
CPT/HCPCS: 36415; 71045; 80048; 80053; 80061; 82550; 82553; 83735; 83880; 84443; 84484; 85025; 93005; 93970; 97162; 99285; J1650

== ENCOUNTER 2023-09-04 16:07 | Emergency (ER) | payer MEDICARE, MEDICAID ==
[~2023-09-04] VITALS: Ht 162.6 cm; Wt 68.0 kg
[~2023-09-04 16:07] MED LIST changes: +DIGO250T79 PO; +METF-414 PO; +SIMV-43 PO
[2023-09-04 16:17] VITALS: O2SAT 98
[2023-09-04] MEDS ORDERED: TETANUS, DIPHTHERIA, PERTUSSIS VAC/PF 0.5ML (>10YR OLD) IM ONE (16:45)
[2023-09-04 17:34] VITALS: TEMP 98.6
[2023-09-04] MEDS: LIDOCAINE HCL/EPINEPHRINE 1%-EPI 1:100,000 20 ML VIAL INFIL ONE (17:34)
[2023-09-04] MEDS: BACITRACIN ZINC OINT UDPKT TOP ONE (17:34)
[2023-09-04] MEDS: ACETAMINOPHEN 325MG TABLET PO ONE (17:34)
[2023-09-04] MEDS: TETANUS, DIPHTHERIA, PERTUSSIS VAC/PF 0.5ML (>10YR OLD) IM ONE (19:21)
[2023-09-04 19:35] VITALS: BP 140/87; PULSE 89; RESP 15
== END 2023-09-04 19:46 | disposition home or self-care (01) ==
LOC: ER 16:07
DX: S01.81XA Laceration without foreign body of other part of head, initial encounter (principal); M25.532 Pain in left wrist; I11.0 Hypertensive heart disease with heart failure; I50.9 Heart failure, unspecified; E78.00 Pure hypercholesterolemia, unspecified; I48.91 Unspecified atrial fibrillation; Z86.73 Personal history of transient ischemic attack (TIA), and cerebral infarction without residual deficits; X58.XXXA Exposure to other specified factors, initial encounter; Y93.89 Activity, other specified; Y92.89 Other specified places as the place of occurrence of the external cause; Y99.8 Other external cause status
CPT/HCPCS: 73090; 73110; 70450; 90715; 12011; 90471; 99285; J3490

== ENCOUNTER → 2024-01-08 | Outpatient (CLI) | payer MEDICARE, MEDICAID | END | disposition home or self-care (01) | LOC: RAD 12:19 | PROVIDERS: ATTEND Specialist | DX: M25.532 Pain in left wrist (principal) | CPT/HCPCS: 73110 ==

== ENCOUNTER 2025-01-14 04:44 | Emergency (ER) | payer MEDICARE, MEDICAID ==
[~2025-01-14] VITALS: Ht 167.6 cm; Wt 63.0 kg
[~2025-01-14 04:44] MED LIST changes: +BISA10SU62 RC; +CLON0.1T GT; +COR3 PO; +DIGO250T GT; -DIGO250T79 PO; +DOCU-422 MT; +FAMO20TA8 PO; -FURO40TA5 PO; +GABA250S6 GT; +LORA-250 GT; +LOSA100T33 GT; -LOSA25TA26 PO; +MELA10TA2 GT; -METF-414 PO; +MULT-622 GT; +RIVA20TA GT; -RIVA20TA PO; -SIMV-43 PO
[2025-01-14 04:47] VITALS: O2SAT 99
[2025-01-14] MEDS: MORPHINE SULFATE 4 MG/ML INJ (FOR IV/IM USE) IM ONE (05:29)
[2025-01-14] MEDS: LORAZEPAM 1MG TABLET PO ONE (05:29)
[2025-01-14] MEDS: TRAMADOL 50MG TABLET PO ONE (06:23)
[2025-01-14] MEDS: HYDROCODONE/ACETAMINOPHEN 5/325MG TABLET PO ONE (06:24)
[2025-01-14 08:30] VITALS: TEMP 36.6
[2025-01-14 11:00] VITALS: BP 153/84; PULSE 80; RESP 16; O2SAT 100
== END 2025-01-14 11:23 | disposition home or self-care (01) ==
LOC: ER 04:44
DX: M79.18 Myalgia, other site (principal); I11.0 Hypertensive heart disease with heart failure; I48.91 Unspecified atrial fibrillation; I50.9 Heart failure, unspecified; E78.5 Hyperlipidemia, unspecified; E11.9 Type 2 diabetes mellitus without complications; Z86.73 Personal history of transient ischemic attack (TIA), and cerebral infarction without residual deficits; Z95.0 Presence of cardiac pacemaker; Z79.01 Long term (current) use of anticoagulants; Z79.899 Other long term (current) drug therapy
CPT/HCPCS: 93005; 99283